=== PATIENT | female | born 1965 | race Caucasian/White ===

== ENCOUNTER 2018-03-15 09:02 | Emergency (ER) | payer MEDICAID ==
[~2018-03-15] VITALS: Ht 160 cm; Wt 79.6 kg
[2018-03-15 09:10] VITALS: BP 147/89
[2018-03-15] MEDS ORDERED: METF500T17 PO (09:25)
[2018-03-15] MEDS ORDERED: GLIP5TAB10 PO (09:25)
[2018-03-15] MEDS ORDERED: ATOR20TA PO (09:26)
[2018-03-15] MEDS ORDERED: GABA300C10 PO (09:27)
[2018-03-15] MEDS ORDERED: OMEP-110 PO (09:27)
[2018-03-15] MEDS ORDERED: IBUP-1223 PO (09:27)
[2018-03-15] MEDS ORDERED: QUET100T4 PO (09:28)
[2018-03-15] MEDS ORDERED: ALBU18HF INH (09:29)
== END 2018-03-15 09:52 | disposition home or self-care (01) ==
LOC: ED 09:46
DX: L03.211 Cellulitis of face (principal); E11.65 Type 2 diabetes mellitus with hyperglycemia; K21.9 Gastro-esophageal reflux disease without esophagitis; J44.9 Chronic obstructive pulmonary disease, unspecified; I10 Essential (primary) hypertension; E11.40 Type 2 diabetes mellitus with diabetic neuropathy, unspecified; Z98.51 Tubal ligation status
CPT/HCPCS: 82962; 99283

== ENCOUNTER 2019-08-22 13:36 | Emergency (ER) | payer MEDICAID ==
[~2019-08-22] VITALS: Ht 160 cm; Wt 78.1 kg
[~2019-08-22 13:36] MED LIST: ALBU18HF INH; ATOR20TA PO; GABA300C10 PO; GLIP5TAB10 PO; IBUP-1223 PO; METF500T17 PO; OMEP-110 PO; QUET100T4 PO
[2019-08-22 13:39] VITALS: BP 148/95
== END 2019-08-22 14:16 | disposition home or self-care (01) ==
LOC: ED 13:51
DX: L03.031 Cellulitis of right toe (principal); E11.9 Type 2 diabetes mellitus without complications; F17.210 Nicotine dependence, cigarettes, uncomplicated
CPT/HCPCS: 99283; 99406